=== PATIENT | male | born 1965 | race Caucasian/White ===

== ENCOUNTER 2017-03-09 20:41 | Emergency (ER) | payer OTHER ==
[~2017-03-09] VITALS: Ht 180.3 cm; Wt 95.3 kg
[~2017-03-09 20:41] MED LIST: ARAVA20 MG PO; CALCIUM 600 +1 EAC1 PO; CELEBREX 200 M200 MG PO; CEPHALEXIN 500500 M1 PO; CYMBALTA30 MG PO; ELAVIL PO; FOLIC ACID1 MG PO; GABAPENTIN100 MG PO; HUMIRA40 MG/0.1 SQ; HYDROCODON-ACE1 EAC5 PO; HYDROXYCHLOROQ200 M1 PO; IBUPROFEN 600600 M1 PO; LEVAQUIN 500 M500 M4 PO; LIPITOR40 MG PO; LOVENOX SQ; METHOTREXATE 22.5 M1 PO; METHOTREXATE 22.5 MG PO; MOBIC15 MG PO; MUCINEX TA600 MG/TA2 PO; NEURONTIN 300300 M1 PO; NEXIUM40 MG PO; NORCO 10-325 T1 EACH; NORCO 10-325 T1 EACH PO; OPANA ER15 M1 PO; OXYCONTIN30 MG PO; PERCOCET PO; PREDNISONE 5 MG5 M1 PO; PROTONIX40 M1 PO; REMERON 30 MG T30 M1 PO; REMERON30 MG PO; REMERON45 MG PO; TYLENOL EXTRA500 MG PO; VITAMIN D3400 UNI1 PO; ZANAFLEX4 M1 PO
[2017-03-09 21:34] LABS: HEMOGLOBIN 14.1 gm/dL (14.0-18.0); MCHC 34.4 g/dL (28.0-37.0); MCV 87.3 fL (80.0-100.0); PLATELET COUNT 255 thou/uL (150-400); RDW 13.6 % (10.5-14.5); WBC 9.5 thou/uL (4.0-11.0)
[2017-03-09 21:43] LABS: CALCIUM 8.5 mg/dL (8.5-10.1); CREATININE 0.9 mg/dL (0.7-1.3); POTASSIUM 3.7 mmol/L (3.5-5.1)
[2017-03-09] MEDS ORDERED: SUBOXONE 8 MG-1 EAC3 SUBLING (21:44)
[2017-03-09] MEDS ORDERED: SIMPONI AR50 MG/4 ML IV (21:45)
[2017-03-09 21:54] LABS: ABSOLUTE NEUTROPHILS 8.6 thou/uL (1.4-8.2)
[2017-03-09 21:55] LABS: ANISOCYTOSIS 1+; POLYCHROMASIA OCCASIONAL
[2017-03-09 23:09] LABS: URINE BLOOD NEGATIVE (Negative); URINE CLARITY SL CLOUDY; URINE COLOR YELLOW; URINE GLUCOSE-RANDOM* NEGATIVE (Negative); URINE KETONES TRACE (Negative); URINE LEUKOCYTES-REFLEX NEGATIVE (Negative); URINE NITRITE-REFLEX NEGATIVE (Negative); URINE PROTEIN (DIPSTICK) NEGATIVE (Negative); URINE SPECIFIC GRAVITY >= 1.030 (1.005-1.035); URINE UROBILINOGEN 0.2 E.U./dl (0.2-1.0)
[2017-03-09 23:13] LABS: ICTOTEST (BILI CONFIRMATORY) Negative (Negative); URINE BILIRUBIN NEGATIVE (Negative)
[2017-03-10] MEDS ORDERED: ZOFRAN ODT4 MG PO (00:03)
[2017-03-10 00:17] VITALS: BP 103/47
== END 2017-03-10 00:20 | disposition home or self-care (01) ==
LOC: ER 20:41
PROVIDERS: Emergency Medicine
DX: R11.10 Vomiting, unspecified (principal); E05.90 Thyrotoxicosis, unspecified without thyrotoxic crisis or storm; F32.9 Major depressive disorder, single episode, unspecified; K21.9 Gastro-esophageal reflux disease without esophagitis; Z87.891 Personal history of nicotine dependence; Z88.6 Allergy status to analgesic agent; Z90.49 Acquired absence of other specified parts of digestive tract; Z98.890 Other specified postprocedural states

== ENCOUNTER 2019-05-07 11:47 | Emergency (ER) | payer OTHER ==
[~2019-05-07] VITALS: Ht 180.3 cm; Wt 99.8 kg
[~2019-05-07 11:47] MED LIST changes: +SIMPONI AR50 MG/4 ML IV; +SUBOXONE 8 MG-1 EAC3 SUBLING; +ZOFRAN ODT4 MG PO
[2019-05-07] MEDS ORDERED: AZITHROMYCIN500 MG PO (12:16)
[2019-05-07] MEDS ORDERED: PREDNISONE 1 MG1 M1 PO (12:16)
[2019-05-07] MEDS ORDERED: AUGMENTIN 500-1 EACH PO (12:17)
[2019-05-07] MEDS ORDERED: REMICADE 1100 MG/VIA (12:19)
[2019-05-07] MEDS ORDERED: OXYCONTIN15 MG PO (12:19)
[2019-05-07 14:15] VITALS: BP 122/75
== END 2019-05-07 14:17 | disposition home or self-care (01) ==
LOC: ER 11:47
DX: R05 Cough (principal); R68.83 Chills (without fever); R06.02 Shortness of breath; M06.9 Rheumatoid arthritis, unspecified; E78.00 Pure hypercholesterolemia, unspecified; E05.90 Thyrotoxicosis, unspecified without thyrotoxic crisis or storm; K21.9 Gastro-esophageal reflux disease without esophagitis; Z90.49 Acquired absence of other specified parts of digestive tract; Z79.899 Other long term (current) drug therapy; Z79.2 Long term (current) use of antibiotics; Z88.8 Allergy status to other drugs, medicaments and biological substances; Z87.891 Personal history of nicotine dependence; Z96.661 Presence of right artificial ankle joint

== ENCOUNTER → 2020-03-31 | Outpatient (CLI) | payer OTHER ==
[~2020-03-31] MED LIST changes: +AUGMENTIN 500-1 EACH PO; +AZITHROMYCIN500 MG PO; +OXYCONTIN15 MG PO; +PREDNISONE 1 MG1 M1 PO; +REMICADE 1100 MG/VIA
== END ==
LOC: CAT 08:59
PROVIDERS: ATTEND Internal Medicine
DX: I25.10 Atherosclerotic heart disease of native coronary artery without angina pectoris (principal); E04.1 Nontoxic single thyroid nodule

== ENCOUNTER → 2020-04-28 | Outpatient (CLI) | payer OTHER | LOC: CAT 10:06 | PROVIDERS: ATTEND Internal Medicine | DX: Z12.2 Encounter for screening for malignant neoplasm of respiratory organs (principal); R91.1 Solitary pulmonary nodule; J98.4 Other disorders of lung ==

== ENCOUNTER → 2020-07-13 | Outpatient (CLI) | payer OTHER | LOC: SJCVC 11:06 | PROVIDERS: ATTEND Internal Medicine | DX: R00.1 Bradycardia, unspecified (principal); I26.99 Other pulmonary embolism without acute cor pulmonale; I42.9 Cardiomyopathy, unspecified; E78.5 Hyperlipidemia, unspecified; G47.33 Obstructive sleep apnea (adult) (pediatric); M05.9 Rheumatoid arthritis with rheumatoid factor, unspecified; R06.00 Dyspnea, unspecified; F32.9 Major depressive disorder, single episode, unspecified; M06.9 Rheumatoid arthritis, unspecified; Z99.89 Dependence on other enabling machines and devices; Z86.16 Personal history of COVID-19; Z87.891 Personal history of nicotine dependence; Z82.49 Family history of ischemic heart disease and other diseases of the circulatory system; Z72.89 Other problems related to lifestyle; Z79.891 Long term (current) use of opiate analgesic; Z79.899 Other long term (current) drug therapy ==

== ENCOUNTER → 2020-09-20 | Day surgery (SDC) | payer OTHER ==
[~2020-09-20] VITALS: Ht 180.3 cm; Wt 102.1 kg
[~2020-09-20] MED LIST changes: +ATORVASTATIN CA40 MG PO; +ATORVASTATIN CA80 MG PO; +AUGMENTIN 875875 M1 PO; +CEPHALEXIN500 MG PO; +CYMBALTA60 MG PO; +ELEMENTAL CALC600 MG PO; +GABAPENTIN 100100 MG PO; +HUMIRA10 MG/0.2 SQ; +HYDROCODON-ACE1 EAC7 PO; +HYSINGLA ER30 MG PO; +INTERMEZZO3.5 MG SL; +LEFLUNOMIDE20 MG PO; +MELOXICAM15 MG PO; +MS CONTIN15 MG PO; +NEURONTIN 300M300 M2 PO; +PAXIL10 MG; +PERCOCET 5-3251 EACH PO; +PREDNISONE 10 M10 MG PO; -PROTONIX40 M1 PO; +PROTONIX40 M2 PO; +REMERON 30 MG T30 MG PO; +REMERON30 M1 PO; +REMICADE; -REMICADE 1100 MG/VIA; +REMICADE 1100 MG/VIA IV; +SUBOXONE 8 MG-1 EAC3 SL; +SYNTHROID50 MCG PO; +TIZANIDINE HCL4 MG PO; +VITAMIN D35000 UNI1 PO; +VOLTAREN GEL 1100 G1 TOP; +WELCHOL 625 MG625 MG PO; +XARELTO20 MG PO
[2020-09-20 11:45] VITALS: BP 114/77
--- NOTE | 2020-09-22 15:08 | PATH ---
[facility] [place] [address] PATHOLOGY RPT PROCEDURE Name: JOSE CHOWDARY Kang Room #: REG [facility] [place].#: [id number] Admission: 09/20/20 Date of : 61 Discharge: Report #: [id number] Path Case #: [id number] [facility] Accession Number: [id number] . 01 Material submitted: . thyroid gland - LEFT THYROID LOBECTOMY. Modifiers: left, LOBE . 01 Clinical history: . THYROID LOBECTOMY THYROID NODULE . 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 - Negative for nuclear features of papillary thyroid carcinoma in the sections examined. (IUV/db; 09/21/2020) LBQ 09/21/2020 1513 Local . 02 Electronically signed: . Isabel Porter MD, Pathologist NPI- [id number] . 01 Gross description: . The specimen is received in formalin, labeled "Jose Chowdary and left thyroid lobectomy". It consists of 3 yanes-brown, irregular soft tissue fragments weighing 36 g and ranging from 1.5-5.3 cm in greatest dimension. The 2 largest fragments appear grossly consistent with unoriented thyroid lobes. The external surface appears yanes-brown, smooth, focally disrupted, and well vascularized. The fragments are inked as follows: Posterior: Black; anterior surface of larger fragments: differentially inked blue and green; probable isthmus resection margin: [place]. Sectioning reveals a mass within each of the larger fragments which appear yanes-pink, well-defined, focally hemorrhagic and friable and measure 3.5 and 4.5 cm. The masses abut the anterior and posterior surface of each of the 2 larger fragments. The uninvolved thyroid appears red-brown and rubbery. [employer]line [employer] Representative sections are submitted as follows: A1-A4: Airline Security Representative sections of masses A5: Airline Security Representative section of unremarkable thyroid A6-A9: Airline Security Representative sections of masses (MRF; 09/20/2020) MFE/MFE 09/21/2020 1554 Local . 02 Pathologist provided ICD-10: E04.1 . [address] [address] PATHOLOGY RPT PROCEDURE Name: JOSE CHOWDARY Room #: REG [facility].#: [id number] Admission: 09/20/20 Date of : 61 Discharge: Report #: [id number] Path Case #: [id number] CPT . 828732 Specimen Comment: A courtesy copy of this report has been sent to [phone] Specimen Comment: [phone] Specimen Comment: Report sent to / DR MIMS Performed at: [address] [facility] [address], [place], [place] [id number] MD [place] MD Phone: [phone] Performed at: [address] [facility] [address] [id number] MD Isabel Porter MD Phone: [phone]
--- NOTE | 2020-10-06 17:47 | O ---
[facility] [place] [address] [place] [address] OPERATIVE REPORT Name: LARA CHOWDARY Room #: REG [facility].#: [id number] Admission: 09/20/20 Attend Phys: Edin Osorio MD Discharge: Date of : 61 Report #: [id number] THIS REPORT FOR: cc: Robles Hernandez,Edin Latham MD ~ cc: Robles Hernandez DO DATE OF SERVICE: 09/20/2020 PREOPERATIVE DIAGNOSIS : Substernal thyroid mass on the left. POSTOPERATIVE DIAGNOSIS: Substernal thyroid mass on the left. PROCEDURE: Left hemithyroidectomy with removal of substernal thyroid via cervical incision. DESCRIPTION OF PROCEDURE: The patient was brought to the operating room and placed on the operating room in supine position. General anesthesia was obtained. An orotracheal tube was inserted. The patient was prepped and draped for left hemithyroidectomy. A 1% lidocaine with 1:100,000 epinephrine was infiltrated in the low midline neck. The patient was prepped and draped sterilely for hemithyroidectomy. A 15 blade was used to incise the skin 2 fingerbreadths above the sternal notch and naturally occurring skin fold horizontally. Subcutaneous tissues were dissected sharply through the platysma. Subplatysmal flap was developed superiorly to the thyroid cartilage and inferiorly to the sternal notch. Strap muscles were divided in the midline. The thyroid isthmus was identified. He has a very large left-sided thyroid mass extends down into the chest. Superior pole was dissected free from the surrounding soft tissue. A right angle was used to isolate the superior pole vessels, which were then divided utilizing a Harmonic scalpel. Dissection proceeded on the lateral aspect of the thyroid capsule and inferiorly into the chest posterior to the clavicle into the upper chest down to the innominate artery. The innominate was clearly palpable and the inferior lobe of the thyroid was dissected free from the surrounding soft tissue in the chest and was then delivered under the clavicle and into the neck. The inferior lobule was from the remaining trachea and divided with a Harmonic scalpel and sent for permanent pathology. The more natural appearing remaining thyroid tissue on the left side dissected laterally. The recurrent laryngeal nerve was identified in its normal anatomic course and followed to its insertion point into the larynx. The superior parathyroid was identified and peeled away from the thyroid cartilage, inferior parathyroid was not identified. The thyroid lobe was then from the trachea at Dodd's ligament and divided at the isthmus and sent for permanent pathology. The wound was examined for hemostasis, which was adequate. A 15-[place] drain was placed into the wound and drained out through the lateral neck. The wound was then closed in [facility] [address] [place] [address] OPERATIVE REPORT Name: LARA CHOWDARY Room #: REG [facility] Oly#: [id number] Admission: 09/20/20 Attend Phys: Edin Osorio MD Discharge: Date of : 61 Report #: [id number] multiple layers including platysmal layer, subcutaneous with subcuticular sutures. The patient was awoken from anesthesia and transferred to recovery room stable. PLAN: Follow up with me in 2 days for drain removal and next week for suture removal. Use [place] as needed for pain. Report if any significant bleeding, swelling or airway compromise. <ELECTRONICALLY SIGNED> By: Edin Osorio MD 10/06/20 1747 [id number] Edin Osorio MD /nt
== END | disposition home or self-care (01) ==
LOC: OR 10:50
PROVIDERS: ATTEND Otolaryngology Plastic Surgery within the Head & Neck
DX: E04.1 Nontoxic single thyroid nodule (principal); E78.00 Pure hypercholesterolemia, unspecified; F32.9 Major depressive disorder, single episode, unspecified; F41.9 Anxiety disorder, unspecified; M06.9 Rheumatoid arthritis, unspecified; K21.9 Gastro-esophageal reflux disease without esophagitis; Z98.890 Other specified postprocedural states; Z79.899 Other long term (current) drug therapy; Z96.651 Presence of right artificial knee joint; Z90.49 Acquired absence of other specified parts of digestive tract; Z88.8 Allergy status to other drugs, medicaments and biological substances
CPT/HCPCS: 50010; 50101; 50331; 50386; 50403; 52190; 52220; 56524; 56526; 56528; 57006; 62110; 62900; 70005